=== PATIENT | male | born 1975 | race Two or more races ===

== ENCOUNTER 2025-05-01 11:02 | Emergency (ER) | payer MEDICAID, SELFPAY ==
[2025-05-01 11:04] VITALS: BP 117/81; PULSE 88; RESP 19; TEMP 36.7; O2SAT 97
[2025-05-01 11:18] VITALS: BMI 28.7
--- NOTE | 2025-05-01 11:21 | PD.EDMEDCL ---
ED Medical Clearance RME/HPI General Chief complaint: Medical Clearance Stated complaint: MEDICAL CLEARANCE Time Seen by Provider: 05/01/25 11:16 Arrival date/time: 05/01/25 11:02 49-year-old male patient with significant history of alcohol abuse, came in for evaluation regarding medical clearance. On my initial evaluation patient was noted to be intoxicated however patient is awake and answer simple questions. Patient is denying any complaints. Per law enforcement, there was no trauma involved with arrest. Patient is ambulatory with help. Related Information Home Medications ?Medication ?Instructions ?Recorded ?Confirmed No Known Home Medications 09/15/23 09/15/23 Allergies Allergy/AdvReac Type Severity Reaction Status Date / Time Penicillins Allergy Unknown Verified 05/01/25 11:20 Review of Systems Review of Systems Narrative Review of Systems: Review of system reviewed and within normal limits except mentioned in HPI ED Exam Narrative Physical exam: VITAL SIGNS: Reviewed. GENERAL APPEARANCE: Alert but drowsy, follows commands, no acute distress, intoxicated HEAD AND FACE: Non-traumatic. ENT: PERRL, pink conjunctivitis, eyelid no trauma, Mucous membrane moist. NECK: Supple, nontender, no nuchal rigidity. CHEST: No tenderness, no crepitus, no paradoxical movement, no retractions. LUNGS: Clear, well ventilated, symmetric, no rales, no wheezing, no ronchi, no stridor, good breath sounds bilaterally. HEART: Regular rate, regular rhythm, no murmur, no gallops. ABDOMEN: Soft, positive bowel sounds, nondistended, no guarding, nontender, no rebound, no masses, RECTAL: Deferred. GENITAL: Deferred. NEUROLOGICAL: Gross motor function intact sensory function intact, Appropriate for age. MUSCULOSKELETAL: low back nontender, full range of motion. EXTREMITIES: Nontender, full range of motion. SKIN: Color pink, dry, no rash, no lacerations, no abrasions, no contusions. LYMPHATICS: Deferred. Course Quality Measures none Vital Signs Vital signs: Vital Signs Temperature 98.0 F 05/01/25 11:04 Pulse Rate 88 05/01/25 11:04 Respiratory Rate 19 05/01/25 11:04 Blood Pressure 117/81 05/01/25 11:04 Pulse Oximetry (%) 97 05/01/25 11:04 Oxygen Delivery Method Room Air 05/01/25 11:04 Medical Clearance MDM Narrative MDM Narrative:: 49-year-old male patient with significant history of alcohol abuse, came in for evaluation regarding medical clearance. On my initial evaluation patient was noted to be intoxicated however patient is awake and answer simple questions. Patient is denying any complaints. Per law enforcement, there was no trauma involved with arrest. Patient is ambulatory with help. Imaging workup is not needed at this time, patient is medically cleared for incarceration Patient data External records reviewed:: None Clinical information provided by:: patient Social determinants that could affect healthcare access:: substance use Patient has the following chronic illnesses:: None How is presenting disease/condition affected by chronic disease/condition?: no chronic disease Evaluation data The following diagnostics were reviewed and interpreted by me:: other (specify) (None) Lab and/or radiology exams considered but not ordered:: None Interpretation Summary: None Medications / Prescriptions Medications or Prescriptions considered but not ordered:: None Medication administrations:: None Consultations Consultation(s) initiated? (list below): No Diagnosis Medical Clearance Differential Diagnosis: other (Medical clearance for incarceration, alcohol intoxication, drug abuse) Most likely diagnosis given after review of the tests above:: Medical clearance for incarceration, alcohol intoxication Admission Indicated Admission indicated?: not indicated Admission Request Was there a request for admission?: No Disposition Plan Disposition Plan: Discharge Discharge Attestation Discharge Attestation: Patient is medically cleared for incarceration. Patient condition: Stable Discharge Plan Plan Patient Disposition: Care Home/Court/Law Discharge Disposition comment: Stable Prescriptions/Referrals Prescriptions/Med Rec: No Action No Known Home Medications Problem List Clinical Impression: Medical clearance for incarceration, Acute alcohol intoxication Patient/Caregiver Discharge Instructions Discharge Activity: activity as tolerated Education Materials: ED Alcohol Intoxication Additional Instructions: Thank you for the opportunity for serving you today. You are stable for discharged back to shelter. You are advised to: Stop abusing alcohol Print Language: Pashto BISI/DAV Supervising Physician BISI/DAV Supervising Physician: MD Garrett
== END 2025-05-01 11:29 ==
LOC: SERX 12:20
PROVIDERS: Emergency Provider Family Medicine
DX: Z02.89 Encounter for other administrative examinations (principal); F10.129 Alcohol abuse with intoxication, unspecified
CPT/HCPCS: 99281